=== PATIENT | female | born 1960 | race Caucasian/White ===

== ENCOUNTER → 2016-07-08 | Outpatient (CLI) | payer OTHER ==
[~2016-07-08] MED LIST: ASPEC325 PO; ASPI-589 PO; CHOL20009 PO; CYAN100020 PO; METO25TA56 PO; MULT-506 PO; OMEG10007 PO
[2016-07-08 11:19] LABS: BLOOD UREA NITROGEN 18 mg/dl (7-18); BUN/CREATININE RATIO 27.1 (10-20); CALCIUM 8.9 mg/dl (8.5-10.1); CARBON DIOXIDE 28 mmol/L (21-32); CHLORIDE 102 mmol/L (98-107); CREATININE 0.65 mg/dl (0.60-1.20); GLUCOSE 118 mg/dl (70-99); POTASSIUM 4.3 mmol/L (3.5-5.1); SODIUM 138 mmol/L (136-145)
[2016-07-08 11:22] LABS: CHOLESTEROL 147 mg/dl (0-200); CHOLESTEROL/HDL RATIO 2.9; HDL CHOLESTEROL 50 mg/dl; LDL CHOLESTEROL CALCULATED 74 mg/dl; TRIGLYCERIDES 114 mg/dl (0-150); VERY LOW DENSITY LIPOPROT CALC 23 mg/dl
[2016-07-08 11:28] LABS: ESTIMATED AVERAGE GLUCOSE 131 mg/dl; HA1C FLAG Normal (Normal)
== END | disposition home or self-care (01) ==
LOC: C.LABBC 08:09
PROVIDERS: ATTEND Family Medicine
DX: Z11.59 Encounter for screening for other viral diseases (principal); E11.9 Type 2 diabetes mellitus without complications

== ENCOUNTER → 2016-10-23 | Outpatient (CLI) | payer OTHER ==
[~2016-10-23] MED LIST changes: +MELO15TA4 PO
--- NOTE | 2016-10-23 09:56 | DIAGNOSTIC IMAGING REPORT ---
LEFT KNEE 1 OR 2 VIEWS ROUTINE CLINICAL HISTORY: LEFT KNEE PAIN COMPARISON: None. DISCUSSION: The bones and joint spaces appear intact. There is no evidence of fracture, dislocation or bony disease. There is no evidence for soft tissue swelling. IMPRESSION: Negative study. Electronically signed by: Emmett Escalante M.D. 10/23/2016 9:55 AM Dictated Date/Time: 10/23/2016 9:54 AM
== END | disposition home or self-care (01) ==
LOC: C.RADBC 09:18
PROVIDERS: ATTEND Family Medicine
DX: M25.562 Pain in left knee (principal)

== ENCOUNTER → 2016-10-24 | Outpatient (CLI) | payer OTHER ==
[2016-10-24 11:07] LABS: BLOOD UREA NITROGEN 17 mg/dl (7-18); BUN/CREATININE RATIO 25.2 (10-20); CARBON DIOXIDE 29 mmol/L (21-32); CHLORIDE 108 mmol/L (98-107); CHOLESTEROL 161 mg/dl (0-200); CREATININE 0.69 mg/dl (0.60-1.20); GLUCOSE 104 mg/dl (70-99); POTASSIUM 5.1 mmol/L (3.5-5.1); SODIUM 143 mmol/L (136-145); TRIGLYCERIDES 149 mg/dl (0-150); VERY LOW DENSITY LIPOPROT CALC 30 mg/dl
[2016-10-24 11:10] LABS: CHOLESTEROL/HDL RATIO 3.2; HDL CHOLESTEROL 51 mg/dl; LDL CHOLESTEROL CALCULATED 80 mg/dl
[2016-10-24 11:22] LABS: ESTIMATED AVERAGE GLUCOSE 134 mg/dl; HA1C FLAG Normal (Normal)
[2016-10-24 12:19] LABS: CALCIUM 8.9 mg/dl (8.5-10.1)
== END | disposition home or self-care (01) ==
LOC: C.LABBC 08:16
PROVIDERS: ATTEND Family Medicine
DX: E11.9 Type 2 diabetes mellitus without complications (principal); I10 Essential (primary) hypertension; R73.9 Hyperglycemia, unspecified

== ENCOUNTER → 2016-12-15 | Outpatient (CLI) | payer OTHER ==
[~2016-12-15] MED LIST changes: -MELO15TA4 PO
--- NOTE | 2016-12-15 15:24 | DIAGNOSTIC IMAGING REPORT ---
L-SPINE MIN 4 VIEWS ROUTINE CLINICAL HISTORY: Sciatica. COMPARISON: None FINDINGS: Alignment of lumbar spine is anatomic. Vertebral body heights are maintained. There is no fracture or suspicious lesion. There is mild disc space narrowing at L5-S1. There is moderate multilevel osteophytosis of the lumbar spine. There is moderate multilevel facet arthrosis. IMPRESSION: 1. No lumbar spine fracture. 2. Moderate multilevel degenerative disc disease and facet arthrosis of the lumbar spine. Electronically signed by: Derick Wiley M.D. 12/15/2016 3:22 PM Dictated Date/Time: 12/15/2016 3:21 PM
== END | disposition home or self-care (01) ==
LOC: C.RADBC 14:40
PROVIDERS: ATTEND Family Medicine
DX: M54.30 Sciatica, unspecified side (principal)

== ENCOUNTER → 2017-01-01 | Outpatient (CLI) | payer OTHER ==
[2017-01-01 17:19] LABS: RHEUMATOID FACTOR < 10.0 U/mL (0-15); TOTAL IRON BINDING CAPACITY 317 mcg/dl (250-450)
[2017-01-07 00:46] LABS: ANTI-CENTROMERE AB <1.0 NEG AI (<1.0 NEG); ANTI-SS-A <1.0 NEG AI (<1.0 NEG); ANTI-SS-B <1.0 NEG AI (<1.0 NEG); DNA ds CRITHIDIA NEGATIVE (NEGATIVE); Sm Antibody <1.0 NEG AI (<1.0 NEG)
== END | disposition home or self-care (01) ==
LOC: C.LAB1850 16:02
PROVIDERS: ATTEND Internal Medicine Rheumatology
DX: M54.5 Low back pain (principal); M25.561 Pain in right knee; L40.50 Arthropathic psoriasis, unspecified

== ENCOUNTER → 2017-01-09 | Outpatient (CLI) | payer OTHER ==
--- NOTE | 2017-01-09 17:53 | DIAGNOSTIC IMAGING REPORT ---
RIGHT LOWER EXT JOINT WITHOUT CLINICAL HISTORY: 56 years-old Female with subacute right knee pain for several months. History of psoriatic arthritis. Patient is currently being treated with steroids. COMPARISON: Right knee radiographs 11/28/2015 TECHNIQUE: Multiplanar, multisequence MRI of the right knee was performed without intravenous contrast. FINDINGS: MENISCI: Horizontal undersurface tear of the posterior horn medial meniscus is noted nicely seen on image 17 of the sagittal PD series. There is 3 mm medial extrusion of the medial meniscal body into the adjacent meniscal gutter. Mild perivascular edema is noted. No displaced fragments or parameniscal cyst. Lateral meniscus is sharp in contour and appears intact. CRUCIATE LIGAMENTS: The anterior and posterior cruciate ligaments are normal in signal, morphology and course. COLLATERAL LIGAMENTS: The popliteus tendon, biceps femoris tendon, fibular collateral ligament and iliotibial band are intact. The superficial and deep components of the medial collateral ligament are intact. Trace edema is noted both superficial and deep to the MCL, likely reactive. EXTENSOR MECHANISM: The quadriceps and patellar tendons are intact.The medial and lateral patellar retinacula are intact. KNEE JOINT: Moderate sized joint effusion is present. Tricompartmental osteoarthritis is noted with mild to moderate joint space narrowing within the medial compartment. Mild lateral and patellofemoral compartment disease is present. Low to intermediate grade chondral fissuring is noted within the medial compartment. There is no intra-articular loose body identified. BONE MARROW: No acute fracture. There is mild red marrow reconversion of the distal femur. No evidence of erosive arthropathy or AVN. SOFT TISSUES: Leaking Barrett's cyst is seen, 2.6 x 0.8 x 4.8 cm. Mild edema is noted within both the superficial and deep prepatellar bursa. IMPRESSION: 1. Tricompartmental osteoarthritis, most pronounced within the medial compartment where there is [id number] disease. 2. Horizontal undersurface tear of the posterior horn medial meniscus is present with mild medial meniscal extrusion and parameniscal edema. 3. Moderate joint effusion. 4. Small leaking Barrett's cyst. 5. No evidence of erosive arthropathy or AVN. The above report was generated using voice recognition software. It may contain grammatical, syntax or spelling errors. Electronically signed by: Leeroy Swanson M.D. 01/09/2017 5:52 PM Dictated Date/Time: 01/09/2017 5:02 PM
== END | disposition home or self-care (01) ==
LOC: C.MRIBC 15:40
PROVIDERS: ATTEND Internal Medicine Rheumatology
DX: L40.50 Arthropathic psoriasis, unspecified (principal); M25.561 Pain in right knee; M54.5 Low back pain; M17.11 Unilateral primary osteoarthritis, right knee; S83.241A Other tear of medial meniscus, current injury, right knee, initial encounter; X58.XXXA Exposure to other specified factors, initial encounter; M25.461 Effusion, right knee; M71.21 Synovial cyst of popliteal space [Baker], right knee

== ENCOUNTER → 2017-01-23 | Outpatient (CLI) | payer OTHER ==
--- NOTE | 2017-01-26 13:10 | MAMMOGRAPHY REPORT ---
BILATERAL DIGITAL SCREENING MAMMOGRAM TOMOSYNTHESIS WITH CAD: 01/23/2017 CLINICAL HISTORY: Routine screening. Patient has no complaints. TECHNIQUE: Breast tomosynthesis in addition to standard 2D mammography was performed. Current study was also evaluated with a Computer Aided Detection (CAD) system. COMPARISON: Comparison is made to exams dated: 01/17/2016 mammogram, 01/05/2015 mammogram, 11/30/2013 ma mmogram, 11/24/2012 mammogram, 12/26/2010 mammogram, and 10/30/2009 mammogram - [facility] nter. BREAST COMPOSITION: The tissue of both breasts is heterogeneously dense, which may obscure small mas ses. FINDINGS: No suspicious masses, calcifications, or areas of architectural distortion are noted in ei ther breast. There has been no significant interval change compared to prior exams. IMPRESSION: ACR BI-RADS CATEGORY 1: NEGATIVE There is no mammographic evidence of malignancy. A 1 year screening mammogram is recommended. The pa tient will receive written notification of the results. Approximately 10% of breast cancers are not detected with mammography. A negative mammographic report should not delay biopsy if a clinically suggestive mass is present. Nadira Dejesus M.D. /:01/23/2017 16:08:25 Analytical Sciences Director: Mirian Arcos, [facility] letter sent: Normal 1/2 BI-RADS Code: ACR BI-RADS Category 1: Negative
== END | disposition home or self-care (01) ==
LOC: C.MAMM 13:46
PROVIDERS: ATTEND Obstetrics & Gynecology
DX: Z12.31 Encounter for screening mammogram for malignant neoplasm of breast (principal)

== ENCOUNTER → 2017-03-26 | Outpatient (CLI) | payer OTHER ==
[~2017-03-26] MED LIST changes: -ASPEC325 PO; +MELO15TA4 PO
--- NOTE | 2017-03-26 17:16 | DIAGNOSTIC IMAGING REPORT ---
LUMBAR SPINE MRI HISTORY: LUMBAR RADICULOPATHY TECHNIQUE: Multiplanar multisequence MRI of the lumbar spine was performed without the use of contrast. COMPARISON: None. FINDINGS: For the purpose of the report the L5-S1 disc space will be located on axial image 23 of 25. Alignment and curvature are intact. No fractures within the lumbar spine. Mild degenerative changes within the lower thoracic spine. Lumbar spine vertebral body heights are within normal limits for age. The conus terminates at the L1 level. Left peripelvic renal cysts. Paraspinal soft tissues are unremarkable. No disc herniations. L1-L2: No significant central canal or neural foraminal narrowing. L2-L3: No significant central canal or neural foraminal narrowing. L3-L4: No significant central canal or neural foraminal narrowing. L4-L5: No significant central canal or neural foraminal narrowing. L5-S1: No significant central canal or neural foraminal narrowing. IMPRESSION: 1. No fractures or subluxation within the lumbar spine. 2. No disc herniations. No significant central canal or neural foraminal narrowing within the lumbar spine. 3. Mild degenerative changes within the lower thoracic spine without central canal or neural foraminal narrowing. Electronically signed by: Nathanael Gerber M.D. 03/26/2017 5:14 PM Dictated Date/Time: 03/26/2017 5:03 PM
== END | disposition home or self-care (01) ==
LOC: C.MRIBC 15:19
PROVIDERS: ATTEND Physician Assistant Medical
DX: M54.16 Radiculopathy, lumbar region (principal); M89.8X8 Other specified disorders of bone, other site

== ENCOUNTER → 2017-04-07 | Outpatient (CLI) | payer OTHER ==
--- NOTE | 2017-04-07 11:17 | DIAGNOSTIC IMAGING REPORT ---
SACRUM AND SACROILIAC JOINTS 3 VIEWS CLINICAL HISTORY: Sciatica. Sacroiliitis. FINDINGS: 3 views of the sacrum and sacroiliac joints are obtained. No prior studies are available for comparison at the time of dictation. The skeletal structures are osteopenic. No fracture is seen. Sclerotic degenerative change is present in the sacroiliac joints. No erosive change is identified. Lumbosacral spondylosis is partially imaged. There is a nonobstructed abdominal bowel gas pattern. IMPRESSION: 1. No fracture is seen. 2. Sclerotic degenerative change is identified in the sacroiliac joints. Electronically signed by: Ivan Monroy M.D. 04/07/2017 11:16 AM Dictated Date/Time: 04/07/2017 11:15 AM
== END | disposition home or self-care (01) ==
LOC: C.RAD1850 10:50
PROVIDERS: ATTEND Internal Medicine Rheumatology
DX: M46.1 Sacroiliitis, not elsewhere classified (principal); M54.30 Sciatica, unspecified side

== ENCOUNTER → 2017-04-10 | Outpatient (CLI) | payer OTHER ==
--- NOTE | 2017-04-10 16:53 | DIAGNOSTIC IMAGING REPORT ---
MRI OF THE SACROILIAC JOINTS WITHOUT IV CONTRAST CLINICAL HISTORY: Sacroiliitis. Bilateral lower extremity weakness. Low back pain. Sciatica. Difficulty walking. COMPARISON STUDY: Radiographs of the sacroiliac joints dated 04/07/2017. TECHNIQUE: MRI of the sacrum and sacroiliac joints is performed utilizing various T1 and T2-weighted sequences in the axial and coronal planes. IV contrast was not administered for this examination. FINDINGS: Mild degenerative sclerosis is suggested in the sacroiliac joints. No marrow edema is identified and there is no bony erosion. No destructive osseous lesion is seen. The sacral foramina appear widely patent. Facet arthropathy at L5-S1 likely causes bilateral neural foraminal stenosis. There is no central canal compromise at this level. There is generalized atrophy of the regional musculature. Left-sided hydronephrosis is suggested on the acquisitions logistics analyst images. IMPRESSION: 1. Minimal degenerative sclerosis is suggested in the sacroiliac joints. This corresponds to the radiographic findings. 2. No marrow edema is identified and there is no erosive change. 3. Left-sided hydronephrosis is suggested on the acquisitions logistics analyst series. Correlation with a renal ultrasound is recommended for further assessment. Dictated: 04/10/2017 4:37 PM Transcribed: 04/10/2017 4:52 PM [email or web address] Electronically signed by: Ivan Monroy M.D. 04/10/2017 4:55 PM Dictated Date/Time: 04/10/2017 4:37 PM
== END | disposition home or self-care (01) ==
LOC: C.MRIBC 16:02
PROVIDERS: ATTEND Internal Medicine Rheumatology
DX: M46.1 Sacroiliitis, not elsewhere classified (principal); M54.30 Sciatica, unspecified side; R93.422 Abnormal radiologic findings on diagnostic imaging of left kidney

== ENCOUNTER → 2017-04-22 | Outpatient (CLI) | payer OTHER ==
[~2017-04-22] MED LIST changes: -MELO15TA4 PO
--- NOTE | 2017-04-22 12:12 | DIAGNOSTIC IMAGING REPORT ---
EXAMINATION: RENAL ULTRASOUND CLINICAL HISTORY: N13.30 Hydronephrosis, COMPARISON STUDY: None FINDINGS: The right kidney measures 11.8 cm. The left kidney measures 11.6 cm. There is mild left-sided hydronephrosis. There are no renal masses. No bladder abnormalities are visualized. Bilateral ureteral jets were visualized. IMPRESSION : 1. Mild left-sided hydronephrosis. Bilateral ureteral jets were visualized. Electronically signed by: Faustino Conroy M.D. 04/22/2017 12:11 PM Dictated Date/Time: 04/22/2017 12:10 PM
== END | disposition home or self-care (01) ==
LOC: C.ULTRBC 11:12
PROVIDERS: ATTEND Internal Medicine Rheumatology
DX: N13.30 Unspecified hydronephrosis (principal)

== ENCOUNTER → 2017-05-13 | Outpatient (CLI) | payer OTHER ==
[~2017-05-13] MED LIST changes: +CYAN10005 PO; +IBUP-103 PO
== END | disposition home or self-care (01) ==
LOC: C.LABBC 13:46
PROVIDERS: ATTEND Family Medicine
DX: M25.50 Pain in unspecified joint (principal)

== ENCOUNTER → 2017-06-11 | Outpatient (CLI) | payer OTHER ==
[~2017-06-11] MED LIST changes: -CYAN10005 PO; -IBUP-103 PO
[2017-06-14 21:19] LABS: VITAMIN B6** TC 926 32.8 ng/mL (2.1-21.7)
[2017-06-18 20:33] LABS: ACETYLCHOLINE RECEPT BLOCKING <15 % inhibit (<15)
== END | disposition home or self-care (01) ==
LOC: C.LABBC 08:26
PROVIDERS: ATTEND Psychiatry & Neurology Neurology
DX: R29.898 Other symptoms and signs involving the musculoskeletal system (principal); R53.1 Weakness

== ENCOUNTER → 2017-06-22 | Outpatient (CLI) | payer OTHER ==
[~2017-06-22] MED LIST changes: +CYAN10005 PO; +IBUP-103 PO
== END | disposition home or self-care (01) ==
LOC: C.LABBC 12:18
PROVIDERS: ATTEND Psychiatry & Neurology Neurology
DX: G60.9 Hereditary and idiopathic neuropathy, unspecified (principal)

== ENCOUNTER → 2017-07-01 | Outpatient (CLI) | payer OTHER ==
[~2017-07-01] MED LIST changes: -CYAN100020 PO; -MULT-506 PO
== END | disposition home or self-care (01) ==
LOC: C.LABSPEC 17:45
PROVIDERS: ATTEND Nurse Practitioner Family
DX: R39.9 Unspecified symptoms and signs involving the genitourinary system (principal)

== ENCOUNTER → 2017-08-20 | Outpatient (CLI) | payer OTHER | END | disposition home or self-care (01) | LOC: C.LABBC 12:11 | PROVIDERS: ATTEND Psychiatry & Neurology Neurology | DX: E53.8 Deficiency of other specified B group vitamins (principal); E55.9 Vitamin D deficiency, unspecified ==

== ENCOUNTER → 2017-12-21 | Outpatient (CLI) | payer OTHER | END | disposition home or self-care (01) | LOC: C.LABBC 14:41 | PROVIDERS: ATTEND Family Medicine | DX: E04.1 Nontoxic single thyroid nodule (principal) ==